=== PATIENT | female | born 1970 | race Caucasian/White ===

== ENCOUNTER 2025-07-03 15:08 | Outpatient (REF) | payer OTHER, SELFPAY ==
[2025-07-03 17:16] LABS: HCT 39.7 % (36.0-46.0); HGB 13.0 g/dL (11.2-15.7); MCH 27.8 pg (27.0-33.0); MCHC 32.7 % (32.0-36.0); MCV 85 fL (80-95); MPV 10.3 fL (8.0-11.0); Platelet Count 403 10^3/uL (130-400); RBC 4.68 10^6/uL (3.93-5.22); RDW 14.6 % (11.7-14.6); RDW-SD 45.1 fL; WBC 8.04 10^3/uL (4.4-10.8)
[2025-07-03 17:38] LABS: Vitamin D 25 Total 34 ng/mL (30-100)
[2025-07-03 17:39] LABS: TSH 0.25 uIU/mL (0.55-4.78)
[2025-07-03 17:52] LABS: Hemoglobin A1C 6.0 % (<5.7)
[2025-07-03 18:04] LABS: ALT 26 U/L (10-49); AST 29 U/L (<34); Albumin 4.5 g/dL (3.2-5.0); Alkaline Phosphatase 74 U/L (46-116); Anion Gap 12.1 mmol/L (3-11); BUN 16 mg/dL (9-23); Bilirubin, Total 0.3 mg/dL (0.2-1.2); CO2 27.3 mmol/L (20.0-31.0); Calcium 10.0 mg/dL (8.3-10.6); Chloride 100 mmol/L (98-107); Cholesterol 225 mg/dL (<200); Glucose 146 mg/dL (74-106); HDL Cholesterol 58 mg/dL (>40); Potassium 3.6 mmol/L (3.5-5.1); Sodium 139 mmol/L (136-145); Total Protein 8.0 g/dL (5.7-8.2)
[2025-07-04 18:05] LABS: T3,Free 4.6 pg/mL (2.8-5.3)
[2025-07-04 18:17] LABS: T3, Total 122 ng/dL (82-158)
== END 2025-07-03 15:09 | disposition home or self-care (01) ==
LOC: NCHCN 15:08
PROVIDERS: Visit Provider Family Medicine
DX: Z00.00 Encounter for general adult medical examination without abnormal findings (principal); E66.813 Obesity, class 3; Z68.41 Body mass index [BMI] 40.0-44.9, adult; Z13.1 Encounter for screening for diabetes mellitus; E05.90 Thyrotoxicosis, unspecified without thyrotoxic crisis or storm
CPT/HCPCS: 80053; 80061; 82306; 85027; 83036; 84439; 84443; 84480; 84481